=== PATIENT | female | born 1980 | race Two or more races ===

== ENCOUNTER 2021-09-29 18:37 | Emergency (ER) | payer SELFPAY ==
[~2021-09-29] VITALS: Ht 157.5 cm; Wt 45.0 kg
[2021-09-29] MEDS ORDERED: SODIUM CHLORIDE 0.9% 1,000 ML IV ONE (20:15)
[2021-09-29 23:15] LABS: BASOPHILS % 0.4 % (0.0-2.0); EOSINOPHILS % 0.4 % (0.0-5.0); HEMATOCRIT. 36.8 % (36.0-48.0); HEMOGLOBIN. 12.6 g/dL (12.0-16.0); LYMPHOCYTES % 35.4 % (20.0-50.0); MEAN CORPUSCULAR HEMOGLOBIN 29.8 pg (28.0-32.0); MONOCYTES % 4.9 % (2.0-8.0); NEUTROPHILS % 58.9 % (40.0-76.0); PLATELET 221 x1000/uL (130-400); RED BLOOD CELL COUNT 4.23 mill/uL (4.2-5.4); RED CELL DISTRIBUTION WIDTH 14.3 % (11.6-14.6)
[2021-09-29 23:21] LABS: CHLORIDE 113 mEq/L (98-107)
[2021-09-29 23:27] LABS: ETHANOL BLOOD 79 mg/dL
[2021-09-29 23:49] LABS: HCG SCREEN NEGATIVE
[2021-09-30] MEDS ORDERED: SODIUM CHLORIDE 0.9% 1,000 ML IV ONE (01:30)
[2021-09-30 06:00] VITALS: BP 117/70
== END 2021-09-30 06:15 | disposition home or self-care (01) ==
LOC: ER 18:37
DX: R53.1 Weakness (principal); R42 Dizziness and giddiness
CPT/HCPCS: 36415; 70450; 80053; 80307; 80320; 80329; 83605; 84703; 85025; 96360; 96361; 99285; J7030; G0480